=== PATIENT | male | born 1955 | race African-American/Black ===

== ENCOUNTER 2023-04-07 15:15 | Emergency (ER) | payer OTHER ==
[2023-04-07 16:20] LABS: #Basophils 0.1 10x3/uL (0.0-0.2); #Eosinphils 0.1 10x3/uL (0.0-0.5); #Monocytes 1.2 10x3/uL (0.0-1.1); #Neutrophils 8.2 10x3/uL (1.5-8.4); %Basophils 0.5 % (0.0-2.0); %Eosinophils 0.7 % (0.0-6.0); %Lymphocytes 15.6 % (18.0-47.0); %Monocytes 10.7 % (0.0-10.0); %Neutrophils 72.1 % (40.0-75.0); Hematocrit 41.3 % (38.8-50.0); Hemoglobin 13.1 g/dL (13.5-17.5); Mean Corpuscular HGB CONC 31.7 g/dL (32.0-36.0); Mean Corpuscular Hemoglobin 28.1 pg (27.0-33.0); Mean Corpuscular Volume 88.4 fl (81.2-95.1); Mean Platelet Volume 11.2 fl (7.4-10.4); Platelet Count 307 10x3/uL (150-450); Red Blood Cell (RBC) Count 4.67 10x6/uL (4.32-5.72); White Blood Cell (WBC) Count 11.4 10x3/uL (3.5-10.5)
[2023-04-07] MEDS ORDERED: Ondansetron PF 4 MG/2 ML Vial ONE (16:27)
[2023-04-07] MEDS ORDERED: Morphine 4 MG/ML VIAL ONE (16:27)
[2023-04-07 16:40] LABS: ALT (SGPT) 112 U/L (8-55); AST (SGOT) 133 U/L (5-34); Albumin 3.7 g/dL (3.4-4.8); Alkaline Phosphatase 817 U/L (40-110); Anion Gap 19 mmol/L (10-20); BUN (Urea Nitrogen) 26 mg/dL (8.4-25.7); Bilirubin, Total 1.6 mg/dL (0.2-1.2); Calc. Creatinine Clearance 0 mL/min (70-130); Calcium 9.5 mg/dL (7.8-10.44); Carbon Dioxide 24 mmol/L (23-31); Chloride 102 mmol/L (98-107); Estimated GFR 69; Globulin 3.5 g/dL (2.4-3.5); Glucose 131 mg/dL (80-115); Lipase 161 U/L (8-78); Magnesium 2.4 mg/dL (1.6-2.6); Potassium 4.3 mmol/L (3.5-5.1); Protein, Total 7.2 g/dL (5.8-8.1); Sodium 141 mmol/L (136-145)
[2023-04-07 16:46] LABS: Troponin I 0.033 ng/mL (< 0.028)
[2023-04-07] MEDS ORDERED: Piperacillin/Tazobactam 4.5 GM VIAL ONE (17:32)
[2023-04-07 18:51] LABS: INR-International Normal Ratio 1.3; Prothrombin Time 13.5 sec (9.5-12.1)
== END 2023-04-07 20:04 | disposition short-term general hospital (02) ==
LOC: CSHERS 15:15
DX: K80.50 Calculus of bile duct without cholangitis or cholecystitis without obstruction (principal); K85.90 Acute pancreatitis without necrosis or infection, unspecified; N39.0 Urinary tract infection, site not specified; R74.01 Elevation of levels of liver transaminase levels; I10 Essential (primary) hypertension; Z87.891 Personal history of nicotine dependence
CPT/HCPCS: 36415; 74177; 80053; 83605; 83690; 83735; 83880; 84484; 85025; 85610; 85730; 87040; 93005; 93010; 96361; 96365; 96375; J2270; J2405; J2543